=== PATIENT | male | born 1980 | race African-American/Black ===

== ENCOUNTER 2017-10-10 20:35 | Emergency (ER) | payer OTHER ==
--- NOTE | 2017-10-10 20:52 | ER Document Report ---
ED Medical Screen (RME) - General Chief Complaint: Chest Pain Stated Complaint: CHEST PAIN Time Seen by Provider: 10/10/17 20:50 Notes: RME DISCLOSURE I have seen this patient as part of a Rapid Medical Evaluation and, if applicable, placed any initially appropriate orders. The patient will be seen and fully evaluated, including a full history and physical exam, by a provider ( in Main ED or Fast Track) when a room becomes available. 37-year-old male PMH hypertension here with complaints of midsternal chest pain radiating up to the left neck shoulder and down the left arm. Symptoms started 3 days ago. Pain is not worse with breathing or exertion. Pain is worse with turning his head to the left. No prior history of UT or PE DVT. TRAVEL OUTSIDE OF THE [place] IN LAST 30 DAYS: No - Related Data Allergies/Adverse Reactions: No Known Allergies Allergy (Unverified 10/10/17 20:37) Physical Exam - Vital signs Vitals: Temp Pulse Resp BP Pulse Ox 98.6 F 74 18 133/77 H 100 10/10/17 20:45 10/10/17 20:45 10/10/17 20:45 10/10/17 20:45 10/10/17 20:45 Course - Vital Signs Vital signs: Temp Pulse Resp BP Pulse Ox 98.6 F 74 18 133/77 H 100 10/10/17 20:45 10/10/17 20:45 10/10/17 20:45 10/10/17 20:45 10/10/17 20:45
[2017-10-10] MEDS ORDERED: ASPIRIN 81 MG TABLET, CHEWABLE PO ONE (21:14)
[2017-10-10 21:23] LABS: ABSOLUTE EOSINOPHILS # (AUTO) 0.2 10^3/uL (0.0-0.6); ABSOLUTE LYMPHOCYTES (AUTO) 2.4 10^3/uL (0.5-4.7); ABSOLUTE MONOCYTES (AUTO) 0.8 10^3/uL (0.1-1.4); ABSOLUTE NEUT (AUTO) 3.5 10^3/uL (1.7-8.2); BASOPHILS % (AUTO) 0.3 % (0-2); EOSINOPHILS % (AUTO) 2.8 % (0-6); HEMATOCRIT 39.6 % (37.9-51.0); HEMOGLOBIN 13.3 g/dL (13.5-17.0); LYMPHOCYTES % (AUTO) 34.9 % (13-45); MEAN CORPUSCULAR HEMOGLOBIN 26.7 pg (27.0-33.4); MEAN CORPUSCULAR HGB CONC 33.6 g/dL (32.0-36.0); MEAN CORPUSCULAR VOLUME 79 fl (80-97); MONOCYTES % (AUTO) 11.8 % (3-13); PLATELET COUNT 333 10^3/uL (150-450); RED BLOOD COUNT 4.99 10^6/uL (4.35-5.55); RED CELL DISTRIBUTION WIDTH 13.6 % (11.5-14.0); SEGMENTED NEUTROPHILS % (AUTO) 50.2 % (42-78); TOTAL CELLS COUNTED % (AUTO) 100 %
--- NOTE | 2017-10-10 21:31 | RADIOLOGY REPORT (SQ) ---
EXAM DESCRIPTION: CHEST 2 VIEWS COMPLETED DATE/TIME: 10/10/2017 9:23 pm REASON FOR STUDY: CP COMPARISON: None. EXAM PARAMETERS: NUMBER OF VIEWS: two views TECHNIQUE: Digital Frontal and Lateral radiographic views of the chest acquired. RADIATION DOSE: NA LIMITATIONS: none FINDINGS: LUNGS AND PLEURA: No opacities, masses or pneumothorax. No pleural effusion. MEDIASTINUM AND HILAR STRUCTURES: No masses or contour abnormalities. HEART AND VASCULAR STRUCTURES: Heart normal size. No evidence for failure. BONES: No acute findings. HARDWARE: None in the chest. OTHER: No other significant finding. IMPRESSION: NO ACUTE RADIOGRAPHIC FINDING IN THE CHEST. TECHNICAL DOCUMENTATION: JOB ID: [id number] [employer]- All Rights Reserved Reading location - IP/workstation name: [email or web address]
[2017-10-10 21:39] LABS: ANION GAP 8 (5-19); BLOOD UREA NITROGEN 18 mg/dL (7-20); CALCIUM 9.3 mg/dL (8.4-10.2); CARBON DIOXIDE 31 mmol/L (22-30); CHLORIDE 102 mmol/L (98-107); CREATINE KINASE 381 U/L (55-170); GLUCOSE 99 mg/dL (75-110); POTASSIUM 3.9 mmol/L (3.6-5.0); SODIUM 141.4 mmol/L (137-145)
--- NOTE | 2017-10-10 22:35 | ER Document Report ---
ED Cardiac - General Chief Complaint: Chest Pain Stated Complaint: CHEST PAIN Time Seen by Provider: 10/10/17 20:50 Mode of Arrival: Ambulatory Information source: Patient Notes: Patient presents with complaint of chest pain that started on Thursday. Patient states that on Thursday he took a long car ride approximately 5 hours, and was lifting heavy coolers in and out of the car. Patient reports that the pain has been constant since Thursday radiates into his back and left shoulder with some pain into his left arm. Patient states that he does not have any nausea, vomiting, diaphoresis with this chest pain. Patient reports past medical history of hypertension. Denies any first-degree relative with cardiac disease. Patient denies use of any alcohol, illicit drugs or tobacco. - HPI Use of: denies: Alcohol, Cocaine When did pain begin: 3 days ago Chest pain radiation location: Back - Related Data Allergies/Adverse Reactions: No Known Allergies Allergy (Unverified 10/10/17 20:37) Past Medical History - General Information source: Patient - Social History Smoking Status: Former Smoker Chew tobacco use (# tins/day): No Frequency of alcohol use: None Drug Abuse: None Lives with: Family Family History: Reviewed & Not Pertinent Patient has suicidal ideation: No Patient has homicidal ideation: No - Past Medical History Cardiac Medical History: Reports: Hx Hypertension EENT Medical History: Reports: None Endocrine Medical History: Reports: None Renal/ Medical History: Reports: None. Denies: Hx Peritoneal Dialysis Malignancy Medical History: Reports None GI Medical History: Reports: None Musculoskeltal Medical History: Reports None Psychiatric Medical History: Reports: None Surgical Hx: Negative - Immunizations Immunizations up to date: Yes Review of Systems - Review of Systems Constitutional: No symptoms reported EENT: No symptoms reported Cardiovascular: Chest pain Respiratory: No symptoms reported Gastrointestinal: No symptoms reported Genitourinary: No symptoms reported Male Genitourinary: No symptoms reported Musculoskeletal: Back pain, Other - Left shoulder pain Skin: No symptoms reported Hematologic/Lymphatic: No symptoms reported Neurological/Psychological: No symptoms reported Physical Exam - Vital signs Vitals: Temp Pulse Resp BP Pulse Ox 98.6 F 74 18 133/77 H 100 10/10/17 20:45 10/10/17 20:45 10/10/17 20:45 10/10/17 20:45 10/10/17 20:45 - Notes Notes: PHYSICAL EXAMINATION: GENERAL: Well-appearing, well-nourished and in no acute distress. HEAD: Atraumatic, normocephalic. EYES: Pupils equal round and reactive to light, extraocular movements intact, sclera anicteric, conjunctiva are normal. ENT: Nares patent, oropharynx clear without exudates. Moist mucous membranes. NECK: Normal range of motion, supple without lymphadenopathy LUNGS: Breath sounds clear to auscultation bilaterally and equal. No wheezes rales or rhonchi. HEART: Regular rate and rhythm without murmurs, sternal chest pain with palpation. ABDOMEN: Soft, nontender, nondistended abdomen. No guarding, no rebound. No masses appreciated. Musculoskeletal: Normal range of motion, no pitting or edema. No cyanosis. Left scapular pain with palpation and movement. NEUROLOGICAL: Cranial nerves grossly intact. Normal speech, normal gait. Normal sensory, motor exams PSYCH: Normal mood, normal affect. SKIN: Warm, Dry, normal turgor, no rashes or lesions noted. Course - Re-evaluation Re-evalutation: Patients initial work-up benign with the exception of an elevated CK, patient has increasing pain with palpation to chest and left scapula. EKG sinus rhythm rate of 70, no ST segment elevations or depressions. Chest xray with no acute findings. Initial troponin negative after presence of pain x3 days. Heart score is 1, PERC rule negative. Will discharge patient with muscle relaxers for likely musculoskeletal strain. Return precautions discussed with patient. - Vital Signs Vital signs: Temp Pulse Resp BP Pulse Ox 98.6 F 74 16 132/90 H 98 10/10/17 22:56 10/10/17 20:45 10/10/17 23:01 10/10/17 23:01 10/10/17 23:01 - Laboratory Result Diagrams: 10/10/17 21:11 10/10/17 21:11 Laboratory results interpreted by me: 10/10/17 10/10/17 21:11 21:11 Hgb 13.3 L MCV 79 L MCH 26.7 L Carbon Dioxide 31 H Creatine Kinase 381 H Discharge - Discharge Clinical Impression: Chest wall pain, Muscle strain Condition: Stable Disposition: HOME, SELF-CARE Instructions: Chest Wall Pain ([facility]), Muscle Relaxers ([facility]), Muscle Strain ([facility]) Additional Instructions: Your chest pain is likely due to the heavy lifting that you did which caused a muscle strain. Please take the medication as prescribed to help with muscle spasms. He may also apply heat to the area which may aid in the discomfort. One of your blood tests, your CK was mildly elevated which can also be caused by a musculoskeletal strain. Increase your oral fluid intake and try to stay hydrated. Follow-up with your primary care doctor in the next 5-7 days. Return to the emergency department if you develop worsening chest pain, shortness of breath, increased heart rate, or swelling of any of your lower extremities. Prescriptions: Methocarbamol [Robaxin 500 mg Tablet] 500 mg PO QID PRN #20 tablet PRN Reason: Muscle Spasms
[2017-10-10] MEDS ORDERED: METHOCARBAMOL 750 MG TABLET PO ONE (22:43)
[2017-10-10 23:05] VITALS: BP 132/90
--- NOTE | 2017-10-11 09:49 | EKG REPORT ---
SEVERITY:- BORDERLINE ECG - SINUS RHYTHM PROBABLE LEFT ATRIAL ABNORMALITY : Confirmed by: Yasmani Cedillo 11-Oct-2017 09:48:45
== END 2017-10-10 23:29 | disposition home or self-care (01) ==
LOC: ER 20:35
DX: S29.011A Strain of muscle and tendon of front wall of thorax, initial encounter (principal); R07.89 Other chest pain; M54.9 Dorsalgia, unspecified; M25.512 Pain in left shoulder; M79.602 Pain in left arm; X50.0XXA Overexertion from strenuous movement or load, initial encounter; I10 Essential (primary) hypertension; Z87.891 Personal history of nicotine dependence
CPT/HCPCS: 93005; 99285; 36415; 82550; 85025; 80048; 84484; 71046; 93010; J3490